=== PATIENT | female | born 1975 | race Caucasian/White ===

== ENCOUNTER 2017-07-13 18:42 | Emergency (ER) | payer SELFPAY ==
[~2017-07-13] VITALS: Ht 152.4 cm; Wt 71.8 kg
[2017-07-13 18:46] VITALS: BP 112/69
== END 2017-07-13 20:34 | disposition left against medical advice (07) ==
LOC: ED 18:42
DX: Z53.21 Procedure and treatment not carried out due to patient leaving prior to being seen by health care provider (principal)

== ENCOUNTER 2019-11-11 17:47 | Emergency (ER) | payer SELFPAY ==
[~2019-11-11] VITALS: Ht 165.1 cm; Wt 68.9 kg
[2019-11-11 18:02] VITALS: Ht 165.1 cm; Wt 68.9 kg
[2019-11-11 19:17] LABS: BASOPHIL % 0.4 % (0-2); PLATELET COUNT 399 x10^3mcL (130-400)
[2019-11-11 19:18] LABS: RED CELL DISTRIBUTION WIDTH 17.1 % (11.5-14.5)
[2019-11-11 19:40] LABS: CALCIUM 8.4 mg/dL (8.5-10.1); CARBON DIOXIDE 26.5 mmol/L (21-32); CHLORIDE SERUM 107 mmol/L (98-107); CREATININE SERUM 0.8 mg/dL (0.6-1.0); GFR1 > 60 mL/min; GLUCOSE SERUM 93 mg/dL (74-106); POTASSIUM SERUM 3.4 mmol/L (3.5-5.1); SODIUM SERUM 143 mmol/L (136-145)
[2019-11-11 19:41] LABS: ALKALINE PHOSPHATASE 85 U/L (46-116); ALT/SGPT 25 U/L (14-59); AST/SGOT 16 U/L (15-37); BILIRUBIN TOTAL 0.2 mg/dL (0.20-1.00); TOTAL PROTEIN, SERUM 7.6 g/dL (6.4-8.2)
[2019-11-11 20:30] VITALS: BP 115/91
== END 2019-11-11 20:30 | disposition home or self-care (01) ==
LOC: ED 17:47
PROVIDERS: Emergency Medicine
DX: R07.89 Other chest pain (principal); J45.909 Unspecified asthma, uncomplicated; R05 Cough; R06.7 Sneezing; Z88.0 Allergy status to penicillin
CPT/HCPCS: 36415